=== PATIENT | female | born 2000 | race Caucasian/White ===

== ENCOUNTER 2018-01-18 10:20 | Inpatient (IN) | payer BC ==
[~2018-01-18 10:20] MED LIST: CEFAZOLIN 1 GM INJ
[2018-01-18] MEDS: ONDANSETRON 4 MG INJ IV ×2 (11:17→23:37)
[2018-01-18 11:29] LABS: ADD MAN DIFF? NO
[2018-01-18 11:31] LABS: WHITE BLOOD COUNT 17.7 10^3/ul (4.8-10.8)
[2018-01-18 11:31] LABS: BASOPHILS % 0.2 % (0.0-2.0); EOSINOPHILS % 0.2 % (0.0-7.0); HEMATOCRIT 34.8 % (37.0-47.0); LYMPHOCYTES # 2.3 10^3/ul (0.8-2.9); MEAN CORPUSCULAR HEMOGLOBIN 24.2 pg (29.0-33.0); MEAN CORPUSCULAR HGB CONC 31.6 g/dl (32.0-37.0); MEAN CORPUSCULAR VOLUME 76.5 fl (72.0-104.0); MEAN PLATELET VOLUME 10.4 fl (7.4-10.4); MONOCYTE # 0.7 10^3/ul (0.3-0.9); NEUTROPHIL # 14.5 10^3/ul (1.6-7.5); NEUTROPHILS % 82.1 % (30.0-74.0); PLATELET COUNT 297 10^3/UL (140-415); RED BLOOD COUNT 4.55 10^6/ul (4.20-5.40); RED CELL DISTRIBUTION WIDTH 16.5 % (11.5-14.5)
[2018-01-18 11:33] LABS: ADD UMIC NO; UR ASCORBIC ACID NEGATIVE (NEGATIVE); UR BACTERIA FEW /HPF (NONE SEEN); UR BILIRUBIN (Dip) NEGATIVE (NEGATIVE); UR BLOOD (Dip) NEGATIVE (NEGATIVE); UR CLARITY SLIGHTLY CLOUDY (CLEAR); UR COLOR YELLOW (YELLOW); UR GLUCOSE (Dip) NEGATIVE (NEGATIVE); UR KETONES (Dip) NEGATIVE (NEGATIVE); UR LEUKOCYTE ESTERASE (Dip) NEGATIVE Leu/ul (NEGATIVE); UR MUCUS FEW /HPF (NONE SEEN); UR NITRITE (Dip) NEGATIVE (NEGATIVE); UR RBC 1 /HPF (0-5); UR SPECIFIC GRAVITY (Dip) 1.019 (1.003-1.030); UR SQUAMOUS EPITHELIAL CELL FEW /HPF (FEW); UR TOTAL PROTEIN (Dip) NEGATIVE (NEGATIVE); UR UROBILINOGEN (Dip) NEGATIVE (NEGATIVE); UR WBC 2 /HPF (0-5)
[2018-01-18 11:51] LABS: ALANINE AMINOTRANSFERASE 24 IU/L (13-69); ALBUMIN 4.2 g/dl (3.3-4.9); ALKALINE PHOSPHATASE 70 IU/L (42-121); ANION GAP 10 (5-13); ASPARTATE AMINO TRANSFERASE 27 IU/L (15-46); BILIRUBIN,INDIRECT 0.7 mg/dl (0-1.1); BILIRUBIN,TOTAL 0.7 mg/dl (0.2-1.3); BLOOD UREA NITROGEN 10 mg/dl (7-20); CALCIUM 9.2 mg/dl (8.4-10.2); CARBON DIOXIDE 27 mmol/L (21-31); CHLORIDE 102 mmol/L (97-110); CREATININE 0.45 mg/dl (0.44-1.00); Estimated GFR > 60 mL/min (>60); GLUCOSE 98 mg/dl (70-220); LIPASE 74 U/L (23-300); POTASSIUM 3.9 mmol/L (3.5-5.1); SODIUM 139 mmol/L (135-144); TOTAL PROTEIN 7.2 g/dl (6.1-8.1)
[2018-01-18] MEDS: IODIXANOL LOCM 100 ML BTL (13:01)
[2018-01-18] MEDS: SOD CHLORIDE 0.9% 100 ML (13:02)
[2018-01-18] MEDS: morphine 4 MG/ML VIAL IV (14:08)
[2018-01-18] MEDS ORDERED: D5W-0.45 NACL + KCL 20 MEQ 1,000 ML IV (14:30)
[2018-01-18] MEDS ORDERED: MAGNESIUM HYDROXIDE 30ML CUP PO (15:00)
[2018-01-18] MEDS ORDERED: DOCUSATE SODIUM 100 MG CAP PO (15:00)
[2018-01-18] MEDS ORDERED: ACETAMINOPHEN 325 MG TAB PO ×2 (15:00)
[2018-01-18] MEDS ORDERED: ONDANSETRON 4 MG INJ IV ×3 (15:00→23:00)
[2018-01-18] MEDS ORDERED: NACL 0.9% 3 ML SYG IV (15:00)
[2018-01-18] MEDS ORDERED: morphine 2 MG INJ IV ×2 (15:00→23:00)
[2018-01-18] MEDS: PIPER-TAZO 3.375 GM IV (PMX) 100 ML IVPB ×2 (15:26→22:00)
[2018-01-18] MEDS ORDERED: KETOROLAC 30 MG INJ IV (16:30)
[2018-01-18] MEDS: DEXTROSE 5%-0.45% NACL 1,000 ML IV (17:04)
[2018-01-18] MEDS ORDERED: MIDAZOLAM 1 MG/ML 2 ML INJ ×2 (20:34→21:03)
[2018-01-18] MEDS ORDERED: FENTAnyl 50 MCG/ML VIAL ×2 (20:34→21:03)
[2018-01-18] MEDS ORDERED: LIDOCAINE 2% (SDV) 5 ML INJ (20:35)
[2018-01-18] MEDS ORDERED: PROPOFOL 0 ML (20:35)
[2018-01-18] MEDS ORDERED: SUCCINYLCHOLINE CHLORIDE 100 MG/5 ML SYG IV (20:35)
[2018-01-18] MEDS ORDERED: ROCURONIUM 50 MG INJ ×2 (20:35→21:03)
[2018-01-18] MEDS ORDERED: SUGAMMADEX SODIUM 200 MG/2 ML VIAL IV (20:36)
[2018-01-18] MEDS ORDERED: METOCLOPRAMIDE 10 MG INJ (20:37)
[2018-01-18] MEDS ORDERED: ROPIVACAINE 0.5 % 30 ML VIAL (20:45)
[2018-01-18] MEDS: FAMOTIDINE 20 MG INJ IV (21:00)
[2018-01-18] MEDS ORDERED: DEXAMETHASONE 4 MG/ML 1 ML INJ (21:03)
[2018-01-18] MEDS ORDERED: ONDANSETRON 4 MG INJ (21:03)
[2018-01-18] MEDS ORDERED: GLYCOPYRROLATE 0.4 MG INJ (21:03)
[2018-01-18] MEDS ORDERED: CEFAZOLIN 1 GM INJ (21:03)
[2018-01-18] MEDS ORDERED: NEOSTIGMINE 3 MG/3 ML SYRINGE (21:03)
[2018-01-18] MEDS ORDERED: PROPOFOL 20 ML (21:03)
[2018-01-18] MEDS ORDERED: KETOROLAC 30 MG INJ (21:09)
[2018-01-18] MEDS ORDERED: hydrALAzine 20 MG INJ IV (22:00)
[2018-01-18] MEDS ORDERED: DIPHENHYDRAMINE 50 MG INJ IV (22:00)
[2018-01-18] MEDS ORDERED: IPRATROPIUM (NEB) 0.5 MG/2.5 ML AMP HHN (22:00)
[2018-01-18] MEDS ORDERED: FENTAnyl 50 MCG/ML VIAL IV ×3 (22:00)
[2018-01-18] MEDS ORDERED: EPHEDrine SULFATE 50 MG/5 ML SYG IV (22:00)
[2018-01-18] MEDS ORDERED: MIDAZOLAM 1 MG/ML 2 ML INJ IV (22:00)
[2018-01-18] MEDS ORDERED: HYDROmorphONE 1 MG/5 ML IV SYRINGE IV ×2 (22:00)
[2018-01-18] MEDS ORDERED: TRIMETHOBENZAMIDE 100 MG/ML VIAL IM (22:00)
[2018-01-18] MEDS ORDERED: MEPERIDINE 25 MG INJ IV (22:00)
[2018-01-18] MEDS ORDERED: OXYCODONE/ACETAMINOPHEN (5/325) TAB PO ×4 (22:00→23:00)
[2018-01-18] MEDS ORDERED: ALBUTEROL 0.083% (NEB) 2.5 MG/3 ML AMP HHN (22:00)
[2018-01-18] MEDS ORDERED: LABETALOL HCL 20MG INJ IV (22:00)
[2018-01-18] MEDS: BUPIVACAINE 0.25%/EPI (MDV) 50 ML VIAL INJ (22:48)
[2018-01-18] MEDS: HYDROmorphONE 1 MG/5 ML IV SYRINGE IV (23:37)
[2018-01-18] MEDS: HYDROCODONE/APAP (5/325) TAB PO (23:55)
[2018-01-19] MEDS: DEXTROSE 5%-0.45% NACL 1,000 ML IV (04:20)
[2018-01-19 05:01] LABS: ADD MAN DIFF? NO
[2018-01-19 05:07] LABS: WHITE BLOOD COUNT 11.8 10^3/ul (4.8-10.8)
[2018-01-19 05:07] LABS: ABNORMAL IP MESSAGE 1; BASOPHILS % 0.1 % (0.0-2.0); HEMATOCRIT 34.1 % (37.0-47.0); HEMOGLOBIN 10.7 g/dl (12.0-16.0); LYMPHOCYTES # 0.6 10^3/ul (0.8-2.9); LYMPHOCYTES % 4.8 % (18.0-55.0); MEAN CORPUSCULAR HEMOGLOBIN 23.9 pg (29.0-33.0); MEAN CORPUSCULAR HGB CONC 31.4 g/dl (32.0-37.0); MEAN CORPUSCULAR VOLUME 76.3 fl (72.0-104.0); MEAN PLATELET VOLUME 10.6 fl (7.4-10.4); MONOCYTE # 0.1 10^3/ul (0.3-0.9); MONOCYTES % 0.7 % (0.0-13.0); NEUTROPHIL # 11.1 10^3/ul (1.6-7.5); PLATELET COUNT 291 10^3/UL (140-415); RED BLOOD COUNT 4.47 10^6/ul (4.20-5.40); RED CELL DISTRIBUTION WIDTH 16.1 % (11.5-14.5)
[2018-01-19] MEDS: PIPER-TAZO 3.375 GM IV (PMX) 100 ML IVPB (05:24)
[2018-01-19 05:39] LABS: ANION GAP 10 (5-13); BLOOD UREA NITROGEN 9 mg/dl (7-20); CARBON DIOXIDE 24 mmol/L (21-31); CHLORIDE 103 mmol/L (97-110); CREATININE 0.51 mg/dl (0.44-1.00); Estimated GFR > 60 mL/min (>60); GLUCOSE 107 mg/dl (70-220); MAGNESIUM 1.9 mg/dl (1.7-2.5); POTASSIUM 4.4 mmol/L (3.5-5.1); SODIUM 137 mmol/L (135-144)
[2018-01-19 05:48] LABS: NEUTROPHILS % 93.9 % (30.0-74.0); POSITIVE DIFF @See below
[2018-01-19] MEDS: FAMOTIDINE 20 MG INJ IV (08:59)
[2018-01-19] MEDS: INFLUENZA VIRUS VACCINE 0.5 ML (DISPENSING) IM* (09:01)
[2018-01-19 09:21] LABS: ANISOCYTOSIS 1+ (0-0); BAND NEUTROPHILS #M 1.5 10^3/ul (0.0-0.6); BAND NEUTROPHILS % (M) 13 % (0-10); BURR CELLS 2+ (0-0); ELLIPTO 1+ (0-0); LYMPHOCYTES #M 0.8 10^3/ul (0.8-2.9); LYMPHOCYTES % (M) 7 % (18-55); MICROCYTOSIS 1+ (0-0); OVALOCYTES 2+ (0-0); PLATELET ESTIMATE NORMAL; POIKILOCYTOSIS 2+ (0-0); REACTIVE LYMPHOCYTES #M 0.4 10^3/ul (0.0-0.0); REACTIVE LYMPHOCYTES% (M) 4 % (0-0); SEG NEUT #M 9.1 10^3/ul (1.6-7.5); SEGMENTED NEUTROPHILS (M) % 76 % (30-74)
== END 2018-01-19 14:00 | disposition home or self-care (01) | DRG 343 ==
LOC: FTE 10:20 → MS1 14:58
PROC: 0DTJ4ZZ Resection of Appendix, Percutaneous Endoscopic Approach (ICD-10-PCS; principal; 2018-01-18 20:30)
DX: K35.80 Unspecified acute appendicitis (principal)
CPT/HCPCS: 74177; 80048; 80053; 81001; 81003; 81025; 83690; 83735; 85025; 88304; 90686

== ENCOUNTER 2018-09-26 13:12 | Emergency (ER) | payer SELFPAY, BC ==
[2018-09-26 14:20] LABS: ADD MAN DIFF? NO
[2018-09-26 14:22] LABS: WHITE BLOOD COUNT 9.6 10^3/ul (4.8-10.8)
[2018-09-26 14:22] LABS: BASOPHILS % 0.4 % (0.0-2.0); EOSINOPHILS # 0.1 10^3/ul (0.0-0.5); EOSINOPHILS % 1.4 % (0.0-7.0); HEMATOCRIT 34.3 % (37.0-47.0); HEMOGLOBIN 10.7 g/dl (12.0-16.0); LYMPHOCYTES % 20.5 % (18.0-55.0); MEAN CORPUSCULAR HEMOGLOBIN 24.2 pg (29.0-33.0); MEAN CORPUSCULAR HGB CONC 31.2 g/dl (32.0-37.0); MEAN CORPUSCULAR VOLUME 77.4 fl (72.0-104.0); MEAN PLATELET VOLUME 10.7 fl (7.4-10.4); MONOCYTE # 0.6 10^3/ul (0.3-0.9); MONOCYTES % 6.2 % (0.0-13.0); NEUTROPHIL # 6.8 10^3/ul (1.6-7.5); PLATELET COUNT 294 10^3/UL (140-415); RED BLOOD COUNT 4.43 10^6/ul (4.20-5.40); RED CELL DISTRIBUTION WIDTH 16.1 % (11.5-14.5)
[2018-09-26 14:35] LABS: ADD UMIC YES; UR ASCORBIC ACID NEGATIVE (NEGATIVE); UR BILIRUBIN (Dip) NEGATIVE (NEGATIVE); UR BLOOD (Dip) NEGATIVE (NEGATIVE); UR CLARITY CLOUDY (CLEAR); UR COLOR YELLOW (YELLOW); UR GLUCOSE (Dip) NEGATIVE (NEGATIVE); UR KETONES (Dip) NEGATIVE (NEGATIVE); UR LEUKOCYTE ESTERASE (Dip) 2+ Leu/ul (NEGATIVE); UR NITRITE (Dip) NEGATIVE (NEGATIVE); UR RBC 1 /HPF (0-5); UR SPECIFIC GRAVITY (Dip) 1.014 (1.003-1.030); UR SQUAMOUS EPITHELIAL CELL MODERATE /HPF (FEW); UR TOTAL PROTEIN (Dip) NEGATIVE (NEGATIVE); UR UROBILINOGEN (Dip) NEGATIVE (NEGATIVE); UR WBC 7 /HPF (0-5)
[2018-09-26 14:37] LABS: ANION GAP 8 (5-13); BLOOD UREA NITROGEN 8 mg/dl (7-20); CALCIUM 9.1 mg/dl (8.4-10.2); CARBON DIOXIDE 25 mmol/L (21-31); CHLORIDE 105 mmol/L (97-110); Estimated GFR > 60 mL/min (>60); GLUCOSE 84 mg/dl (70-220); POTASSIUM 4.1 mmol/L (3.5-5.1); SODIUM 138 mmol/L (135-144)
[2018-09-26] MEDS: CEPHALEXIN 500 MG CAP PO (14:59)
== END 2018-09-26 15:05 | disposition home or self-care (01) ==
LOC: FTE 15:05 → E/R 13:12
DX: N39.0 Urinary tract infection, site not specified (principal)
CPT/HCPCS: 80048; 81001; 84702; 85025; 87086; 99283